=== PATIENT | male | born 1990 | race Caucasian/White ===

== ENCOUNTER 2018-07-22 12:06 | Emergency (ER) | payer OTHER | END 2018-07-22 15:58 | disposition home or self-care (01) | LOC: FTE 12:06 | DX: S60.322A Blister (nonthermal) of left thumb, initial encounter (principal); X58.XXXA Exposure to other specified factors, initial encounter; Y92.9 Unspecified place or not applicable | CPT/HCPCS: 10060; 99282-25 ==